=== PATIENT | male | born 1960 | race Caucasian/White ===

== ENCOUNTER → 2016-12-28 | Outpatient (REF) | payer OTHER | LOC: M LAB REF 13:39 | PROVIDERS: ATTEND Internal Medicine Nephrology | DX: R35.0 Frequency of micturition (principal) ==

== ENCOUNTER → 2017-01-02 | Outpatient (CLI) | payer OTHER ==
--- NOTE | 2017-01-02 15:15 | REP ---
Bladder ultrasound for bladder postvoid residual: The pre void bladder volume is 307 ml. The postvoid bladder volume is 29 ml. Postvoid residual is 9.4%. Prostate is normal size measuring 2.8 x 2.8 x 3.7 cm for a volume of 15.2 cc's. No bladder wall polyps or masses are identified. Signed by Manish Parsons MD 01/02/2017 03:07 P
== END ==
LOC: M RAD 13:46
PROVIDERS: ATTEND Internal Medicine Nephrology
DX: Q61.3 Polycystic kidney, unspecified (principal); N18.2 Chronic kidney disease, stage 2 (mild); R35.0 Frequency of micturition

== ENCOUNTER → 2017-11-22 | Outpatient (CLI) | payer OTHER | LOC: M RAD 09:00 | DX: N18.3 Chronic kidney disease, stage 3 (moderate) (principal); Q61.3 Polycystic kidney, unspecified | CPT/HCPCS: 76775 ==

== ENCOUNTER → 2019-07-29 | Outpatient (REF) | payer OTHER | LOC: M LAB REF 16:12 | PROVIDERS: ATTEND Family Medicine | DX: M25.50 Pain in unspecified joint (principal) ==

== ENCOUNTER → 2020-05-30 | Outpatient (REF) | payer OTHER | LOC: M LAB REF 15:00 | PROVIDERS: ATTEND Family Medicine | DX: R19.7 Diarrhea, unspecified (principal) ==

== ENCOUNTER → 2020-06-11 | Outpatient (REF) | payer OTHER ==
[2020-06-13 09:07] LABS: LDL DIRECT 113 mg/dL (0-99)
== END ==
LOC: M LAB REF 16:41
PROVIDERS: ATTEND Family Medicine
DX: E78.5 Hyperlipidemia, unspecified (principal)

== ENCOUNTER → 2020-08-06 | Outpatient (CLI) | payer OTHER ==
--- NOTE | 2020-08-06 13:48 | REP ---
INDICATION: SOB COMPARISON: None. TECHNIQUE: PA and lateral. FINDINGS: The mediastinum and cardiac silhouette are normal. The lung barrios are clear and without acute consolidation, effusion, or pneumothorax. The skeletal structures are intact and normal. IMPRESSION: No acute cardiopulmonary process. <Electronically signed by Sean Castellanos > 08/06/20 1442
== END ==
LOC: M WUC 13:24
PROVIDERS: ATTEND Family Medicine
DX: R06.09 Other forms of dyspnea (principal)

== ENCOUNTER → 2021-03-09 | Outpatient (REF) | payer OTHER ==
[2021-03-09 17:43] LABS: C REACTIVE PROTEIN QUANTITATIV < 0.30 MG/DL (0.00-0.30); RHEUMATOID FACTOR QUANT < 10.0 IU/ML (<15.0)
== END ==
LOC: M LAB REF 16:24
PROVIDERS: ATTEND Family Medicine
DX: R53.83 Other fatigue (principal); M25.50 Pain in unspecified joint

== ENCOUNTER → 2021-05-20 | Outpatient (REF) | payer OTHER | LOC: M LAB REF 16:52 | PROVIDERS: ATTEND Internal Medicine Nephrology | DX: N18.2 Chronic kidney disease, stage 2 (mild) (principal) ==

== ENCOUNTER → 2021-06-01 | Outpatient (CLI) | payer OTHER | LOC: M WUC 13:35 | PROVIDERS: ATTEND Physician Assistant | DX: S83.411A Sprain of medial collateral ligament of right knee, initial encounter (principal) ==

== ENCOUNTER → 2021-12-29 | Outpatient (REF) | payer OTHER ==
[2021-12-29 13:13] LABS: RSV AMPLIFICATION NEGATIVE (NEGATIVE)
== END ==
LOC: M LAB REF 11:51
PROVIDERS: ATTEND Physician Assistant
DX: R50.9 Fever, unspecified (principal)

== ENCOUNTER → 2022-05-24 | Outpatient (CLI) | payer OTHER | LOC: M SLEEP HO 10:57 | PROVIDERS: ATTEND Internal Medicine Pulmonary Disease | DX: R06.83 Snoring (principal) ==

== ENCOUNTER → 2023-08-30 | Outpatient (REF) | payer OTHER ==
[2023-08-30 18:31] LABS: BACTERIA, URINE AUTO NEGATIVE (NEGATIVE); MUCUS, URINE SMALL (NEGATIVE); RBC, URINE AUTO 0 /HPF (0-3); SQUAMOUS EPITHELIAL CELL UR AU 0 /HPF (0-6); WBC, URINE AUTO 0 /HPF (0-3)
== END ==
LOC: M LAB REF 17:00
PROVIDERS: ATTEND Internal Medicine Nephrology
DX: N30.00 Acute cystitis without hematuria (principal); Q61.3 Polycystic kidney, unspecified

== ENCOUNTER 2023-11-09 08:23 | Day surgery (SDC) | payer OTHER ==
[~2023-11-09] VITALS: Ht 177.8 cm; Wt 102.4 kg
[~2023-11-09 08:23] MED LIST: CENT1TAB PO; CHOL25TA9 PO; EZET10TA21 PO; GLUCTAB64 PO; GLYCOPYRROLATE INJ 0.2 MG/ML 2 ML VIAL As Ordered ONE; GNP1000C11 PO; PANT40TA29 PO; TAMS1CAP17 PO; [UNRECOGNIZED DRUG - CODE] PO; propofoL 200 MG/20 ML VIAL As Ordered ONE
[2023-11-09] MEDS: NS 1,000 ML IV ONE (08:50)
[2023-11-09 10:16] VITALS: TEMP 97.8
[2023-11-09 10:38] VITALS: BP 119/72; O2SAT 97
== END 2023-11-09 10:41 | disposition home or self-care (01) ==
LOC: M OPP 08:23
PROVIDERS: ATTEND Internal Medicine Gastroenterology
DX: Z12.11 Encounter for screening for malignant neoplasm of colon (principal); K64.8 Other hemorrhoids; Z79.899 Other long term (current) drug therapy
CPT/HCPCS: 45378; J1596

== ENCOUNTER → 2024-01-09 | Outpatient (CLI) | payer OTHER ==
[~2024-01-09] MED LIST changes: -GLYCOPYRROLATE INJ 0.2 MG/ML 2 ML VIAL As Ordered ONE; -propofoL 200 MG/20 ML VIAL As Ordered ONE
== END ==
LOC: M RAD 14:45
PROVIDERS: ATTEND Family Medicine
DX: R10.2 Pelvic and perineal pain (principal)

== ENCOUNTER → 2024-12-05 | Outpatient (CLI) | payer OTHER ==
[2024-12-05 18:12] LABS: BACTERIA, URINE AUTO NEGATIVE (NEGATIVE); RBC, URINE AUTO 0 /HPF (0-3); SQUAMOUS EPITHELIAL CELL UR AU 0 /HPF (0-6); WBC, URINE AUTO 0 /HPF (0-3)
[2024-12-05 18:15] LABS: BASO # 0.1 10^3/uL (0.0-0.2); BASO % 0.8 % (0.0-1.0); EOS # 0.1 10^3/uL (0.0-0.5); EOS % 1.1 % (0.0-3.0); LYMPH # 2.7 10^3/uL (1.5-5.0); LYMPH % 42.1 % (24.0-44.0); MONO # 0.6 10^3/uL (0.0-0.8); MONO % 9.0 % (2.0-8.0); NEUTROPHILS # 3.0 10^3/uL (1.5-8.5); NEUTROPHILS % 46.5 % (36.0-66.0); PLATELET COUNT, AUTOMATED 311 10^3/uL (150-450)
[2024-12-05 18:18] LABS: CALCIUM LEVEL 9.7 MG/DL (8.3-10.6); CARBON DIOXIDE LEVEL 29.0 MMOL/L (20-31); CHLORIDE LEVEL 103.0 MMOL/L (98-107); CREATININE FOR GFR 1.08 MG/DL (0.70-1.30); GLOMERULAR FILTRATION RATE 77.6 (>49); MAGNESIUM LEVEL 2.2 MG/DL (1.8-2.4); PHOSPHORUS LEVEL 3.9 MG/DL (2.4-5.1); POTASSIUM SERUM 4.3 MMOL/L (3.5-5.1); SODIUM LEVEL 142.0 MMOL/L (136-145)
== END ==
LOC: M WUC 15:10
PROVIDERS: ATTEND Internal Medicine Nephrology
DX: N18.32 Chronic kidney disease, stage 3b (principal); I12.9 Hypertensive chronic kidney disease with stage 1 through stage 4 chronic kidney disease, or unspecified chronic kidney disease; R31.21 Asymptomatic microscopic hematuria

== ENCOUNTER → 2024-12-10 | Outpatient (REF) | payer OTHER ==
[2024-12-12 16:27] LABS: ALDOLASE 3.6 U/L (< OR = 8.1)
[2024-12-14 21:08] LABS: BORRELIA SPECIES DNA NOT DETECTED (NOT DETECT)
== END ==
LOC: M LAB REF 17:40
PROVIDERS: ATTEND Family Medicine
DX: S40.861A Insect bite (nonvenomous) of right upper arm, initial encounter (principal); M79.10 Myalgia, unspecified site; R53.83 Other fatigue; X58.XXXA Exposure to other specified factors, initial encounter; Y92.9 Unspecified place or not applicable; Y93.9 Activity, unspecified; Y99.9 Unspecified external cause status

== ENCOUNTER → 2024-12-12 | Outpatient (CLI) | payer OTHER ==
[~2024-12-12] MED LIST changes: +ISOVUE-370 76% 100 ML VIAL ONE
== END ==
LOC: M PLAIMG 14:22
PROVIDERS: ATTEND Internal Medicine Nephrology
DX: N18.31 Chronic kidney disease, stage 3a (principal); Q61.3 Polycystic kidney, unspecified; D41.00 Neoplasm of uncertain behavior of unspecified kidney
CPT/HCPCS: 74178; Q9967